=== PATIENT | male | born 1940 | race Caucasian/White ===

== ENCOUNTER → 2019-10-28 12:07 | Outpatient (CLI) | payer MEDICARE, SELFPAY ==
--- NOTE | 2019-10-28 | DI.CT.S_ITS ---
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 For radiation dose reduction, the following was used: automated exposure control, adjustment of mA and/or kV according to patient size. COMPARISON: [facility], CR, XR CHEST 2V, 10/28/2019, 11:15. FINDINGS: Image quality: Excellent. CSF spaces: Basal cisterns are patent. No extra-axial fluid collections. The ventricles are symmetric in size and shape. Brain: No intracranial bleeds or masses. There is cerebral volume loss for age, with resultant ventricular and sulcal prominence. There are periventricular and deep white matter chronic small vessel ischemic changes. There is intracranial internal carotid artery atherosclerosis. Skull and face: Calvarium and visualized facial bones appear intact, without suspicious lesions. Sinuses: Visualized sinuses and mastoids are clear. IMPRESSION: Unremarkable intracranial study. Note is made of age-appropriate brain parenchymal volume loss and chronic small vessel ischemic changes. Dictated by: Payam Levi M.D. on 10/28/2019 at 11:46 Approved by: Payam Levi M.D. on 10/28/2019 at 11:47
--- NOTE | 2019-10-28 | DI.RAD.S_ITS ---
PROCEDURE: XR CHEST 2V INDICATIONS: J20.9 BRONCHITIS TECHNIQUE: 2 views of the chest were acquired. COMPARISON: [facility], CT, CT HEAD/BRAIN WO CON, 10/28/2019, 12:17. FINDINGS: Surgical changes and devices: None. Lungs and pleura: Lungs are clear. No pleural effusions or pneumothorax. The lungs are hyperexpanded, with flattening of the hemidiaphragms seen. Mediastinum: The cardiac contours are within normal limits. The aorta demonstrates calcification and tortuosity. Bones and chest wall: No suspicious bony abnormalities. Age-appropriate bony degenerative changes are seen. Accentuated thoracic kyphosis is seen. Soft tissues appear unremarkable. IMPRESSION: Hyperexpanded lungs, without an acute cardiopulmonary process identified. Dictated by: Payam Levi M.D. on 10/28/2019 at 11:48 Approved by: Payam Levi M.D. on 10/28/2019 at 11:48
== END ==
PROVIDERS: PCP Internal Medicine; Referring Provider Internal Medicine; Visit Provider Internal Medicine
DX: F04 Amnestic disorder due to known physiological condition (principal); J20.9 Acute bronchitis, unspecified
CPT/HCPCS: 70450; 71046